=== PATIENT | female | born 1995 | race Caucasian/White ===

== ENCOUNTER 2017-01-25 22:09 | Emergency (ER) | payer SELFPAY ==
[2017-01-25 23:46] LABS: HEMATOCRIT 37.1 % (36.0-48.0); HEMOGLOBIN 13.2 g/dL (12-16); MCHC 35.6 g/dL (31.0-37.0); MCV 89.8 fL (80.0-100.0); MEAN PLATELET VOLUME 9.9 fL (7.4-10.4); NEUTROPHILS 74.3 % (40-80); PLATELET COUNT 210 10x3/uL (130-400); RBC 4.13 10x6/uL (4.00-5.40); RDW 13.6 % (11.5-14.5); WBC 13.7 10x3/uL (4.8-10.8)
[2017-01-26 00:03] LABS: APPEARANCE SLT CLOUDY (CLEAR); BILIRUBIN NEGATIVE (NEGATIVE); COLOR YELLOW (YELLOW); GLUCOSE NEGATIVE (NEGATIVE); KETONE NEGATIVE (NEGATIVE); LEUKOCYTE ESTERASE 1+ (NEGATIVE); NITRITE NEGATIVE (NEGATIVE); PROTEIN NEGATIVE (NEGATIVE); UROBILINOGEN NORMAL (NORMAL)
[2017-01-26 00:05] LABS: ALBUMIN 3.1 g/dL (3.4-5.0); ALKALINE PHOSPHATASE 60 U/L (46-116); ALT (SGPT) 13 U/L (10-68); BILIRUBIN - TOTAL 0.17 mg/dL (0.2-1.3); CALC OSMOLALITY 278 mosm/kg (275-300); CALCIUM 8.8 mg/dL (8.5-10.1); CARBON DIOXIDE 28.1 mmol/L (21.0-32.0); CHLORIDE - SERUM 105 mmol/L (98-107); CREATININE - SERUM 0.8 mg/dL (0.6-1.3); GLUCOSE 71 mg/dL (74-106); POTASSIUM - SERUM 3.4 mmol/L (3.5-5.1); PROTEIN - SERUM 6.4 g/dL (6.4-8.2); SODIUM 142 mmol/L (136-145); UREA NITROGEN 7 mg/dL (7-18); eGFR NON AFRICAN AMERICAN > 90 mL/min (90-120)
[2017-01-26 00:06] LABS: BACTERIA MODERATE /hpf (NONE SEEN); EPITHELIAL CELLS 0-5 /hpf (0-5); MUCUS >1+ /lpf (NONE SEEN); RED CELLS - URINE 0-5 /hpf (0-5); WHITE CELLS - URINE 0-5 /hpf (0-5)
== END 2017-01-26 01:00 | disposition home or self-care (01) ==
LOC: D.ER 22:09
PROVIDERS: Family Medicine
DX: O26.891 Other specified pregnancy related conditions, first trimester (principal); Z3A.13 13 weeks gestation of pregnancy; N39.0 Urinary tract infection, site not specified; R55 Syncope and collapse

== ENCOUNTER 2018-02-08 21:48 | Emergency (ER) | payer SELFPAY ==
[~2018-02-08] VITALS: Ht 157.5 cm; Wt 54.5 kg
[2018-02-08 21:58] VITALS: Ht 157.5 cm; Wt 54.5 kg
[2018-02-09 00:29] VITALS: BP 125/84
== END 2018-02-09 00:20 | disposition home or self-care (01) ==
LOC: D.ER 21:48
DX: O26.891 Other specified pregnancy related conditions, first trimester (principal); Z3A.08 8 weeks gestation of pregnancy; H61.21 Impacted cerumen, right ear; H92.01 Otalgia, right ear